=== PATIENT | female | born 1955 | race Caucasian/White ===

== ENCOUNTER 2018-04-21 08:22 | Day surgery (SDC) | payer MEDICARE, MEDICAID ==
[~2018-04-21 08:22] MED LIST: Bisacodyl 5 MG Tab PO PRN; Clindamycin Phosphate 900 MG in Sodium Chloride 0.9% 100 ML IV SCH; EPINEPHrine 1 MG/ML SDV ONE; Lidocaine 1%/Sod Bicarbonate in NS 8.4% 1 ML Syringe IDERM PRN; Magnesium Hydroxide 400 MG/5 ML Susp 30 ML Cup PO PRN; Morphine 2 MG/ML Syringe IVPUSH PRN; Naloxone 0.4 MG/ML SDV IVPUSH PRN; Ondansetron 4 MG/2 ML SDV IVPUSH PRN; Ropivacaine 0.5% 5 MG/ML 30 ML SDV ONE; Sennosides 8.6 MG Tab PO PRN; Sodium Chloride 0.9% 10 ML Syringe FLUSH PRN
[2018-04-21] MEDS: Lactated Ringers 1,000 ML IV SCH ×2 (08:46→12:56)
[2018-04-21] MEDS ORDERED: Albuterol 0.083% 2.5 MG/3 ML Neb Soln NEB ONE (08:52)
[2018-04-21] MEDS ORDERED: Morphine 8 MG, EPINEPHrine 0.3 MG, Ketorolac 30 MG, Sodium Chloride 0.9% 27.9 ML ONE ×4 (09:00)
--- NOTE | 2018-04-21 09:06 | PCM.PREANE ---
Preanesthetic Assessment - Procedure Proposed Procedure: right total knee - Anesthesia/Transfusion/Family Hx Anesthesia History: Prior Anesthesia Without Reaction Family History of Anesthesia Reaction: No Transfusion History: Prior Transfusion Without Reaction - Review of Systems General: No Symptoms Pulmonary: No Symptoms Cardiovascular: No Symptoms Gastrointestinal: No Symptoms Neurological: No Symptoms Other: Reports: Depression, Anxiety - Physical Assessment NPO Status Date: 04/20/18 NPO Status Time: 19:00 (sip with pill at 4) Pulse: 60 O2 Sat by Pulse Oximetry: 94 Respiratory Rate: 18 Blood Pressure: 131/67 Temperature: 100.3 F Height: 5 ft 7 in Weight: 76.4 kg ASA Class: 3 Mental Status: Alert & Oriented x3 Airway Class: Mallampati = 1 Dentition: Reports: Dentures (top and bottom- chips and missing teeth in dentures) Thyro-Mental Finger Breadths: 3 Mouth Opening Finger Breadths: 3 ROM/Head Extension: Full Lungs: Normal Respiratory Effort, Decreased Breath Sounds Cardiovascular: Regular Rate, Regular Rhythm - Allergies Allergies/Adverse Reactions: Allergies Allergy/AdvReac Type Severity Reaction Status Date / Time Cephalosporins Allergy Rash Verified 04/20/18 13:48 amoxicillin [From Augmentin] AdvReac Diarrhea Verified 04/20/18 13:55 clavulanic acid AdvReac Diarrhea Verified 04/20/18 13:55 [From Augmentin] - Blood Blood Available: No - Anesthesia Plan Beta Stef: Other (nebivolol) Med Last Dose Date: 04/21/18 Med Last Dose Time: 04:00 - Acknowledgements Anesthesia Type Planned: Spinal Pt an Appropriate Candidate for the Planned Anesthesia: Yes Alternatives and Risks of Anesthesia Discussed w Pt/Guardian: Yes Pt/Guardian Understands and Agrees with Anesthesia Plan: Yes PreAnesthesia Questionnaire HEENT History: Reports: Allergic Rhinitis, Impaired Vision, Other (See Below) Other HEENT History: wears glasses, has dentures Cardiovascular History: Reports: High Cholesterol, Hypertension Respiratory History: Reports: None Gastrointestinal History: Reports: GERD, Other (See Below) Other Gastrointestinal History: nausea Genitourinary History: Reports: Chronic Renal Insuffiency (only has 1 kidney) PICKLE SORTER History: Reports: None Musculoskeletal History: Reports: Back Pain, Chronic, Osteoarthritis, Other ( See Below) Other Musculoskeletal History: right knee pain, lumbar radiculopathy Neurological History: Reports: Other (See Below) Other Neuro History: lumbar discectomy, lumbar fusion Psychiatric History: Reports: Addiction, Anxiety, Depression Endocrine/Metabolic History: Reports: None Hematologic History: Reports: None Immunologic History: Reports: None Oncologic (Cancer) History: Reports: None Dermatologic History: Reports: None - Past Surgical History HEENT Surgical History: Reports: Adenoidectomy, Tonsillectomy Cardiovascular Surgical History: Reports: None Respiratory Surgical History: Reports: None GI Surgical History: Reports: Colonoscopy, EGD Female Surgical History: Reports: Hysterectomy, Tubal Ligation, Other (See Below) Other Female Surgeries/Procedures: nephrectomy Endocrine Surgical History: Reports: None Neurological Surgical History: Reports: Other (See Below) (back surgery) Musculoskeletal Surgical History: Reports: None Oncologic Surgical History: Reports: None Dermatological Surgical History: Reports: None - SUBSTANCE USE Smoking Status *Q: Current Every Day Smoker Tobacco Use Within Last Twelve Months: Cigarettes Second Hand Smoke Exposure: Yes Days Per Week of Alcohol Use: 0 Recreational Drug Use History: No - HOME MEDS Home Medications: Home Meds ARIPiprazole [Aripiprazole] 2 mg PO DAILY 04/20/18 [History] DULoxetine HCl [Duloxetine HCl] 60 mg PO DAILY 04/20/18 [History] Meloxicam 15 mg PO DAILY 04/20/18 [History] Multivitamin [Zoo Chews] 1 tab PO DAILY 04/20/18 [History] Naltrexone 50 mg PO DAILY 04/20/18 [History] Nebivolol HCl [Bystolic] 10 mg PO DAILY 04/20/18 [History] Omeprazole Magnesium [Prilosec Otc] 20 mg PO BID 04/20/18 [History] Sennosides [Senokot] 8.6 mg PO DAILY PRN 04/20/18 [History] Simvastatin [Zocor] 80 mg PO DAILY 04/20/18 [History] amLODIPine Besylate [Amlodipine Besylate] 10 mg PO DAILY 04/20/18 [History] amLODIPine Besylate [Amlodipine Besylate] 10 mg PO DAILY 04/20/18 [History] hydrOXYzine HCl [hydrOXYzine] 25 - 50 mg PO BID 04/20/18 [History] traZODone HCl [Trazodone HCl] 200 mg PO BEDTIME 04/20/18 [History] - CURRENT (IN HOUSE) MEDS Current Meds: Current Medications Albuterol (Proventil Neb Soln) 2.5 mg NEB ONETIME ONE Stop: 04/21/18 08:53 Aspirin (Ecotrin) 325 mg PO BID [facility] Bisacodyl (Dulcolax) 5 mg PO DAILY PRN PRN Reason: Constipation Cyclobenzaprine HCl (Flexeril) 10 mg PO TID PRN PRN Reason: Spasms Docusate Sodium (Colace) 100 mg PO BID [facility] Lactated Ringer's (Ringers, Lactated) 1,000 mls @ 125 mls/hr IV ASDIRECTED [facility] Stop: 04/21/18 23:00 Cefazolin Sodium/Dextrose 2 gm (/ Premix) 50 mls @ 100 mls/hr IV Q8H [facility] Stop: 04/22/18 00:29 Ketorolac Tromethamine (Toradol) 15 mg IVPUSH Q6H PRN PRN Reason: Pain Lidocaine/Sodium Bicarbonate (Buffered Lidocaine 1% In Ns 8.4%) 0.25 ml IDERM ONETIME PRN PRN Reason: Prior to IV Start Stop: 04/21/18 18:00 Magnesium Hydroxide (Milk Of Magnesia) 30 ml PO BID PRN PRN Reason: Constipation Morphine Sulfate (Morphine) 2 mg IVPUSH Q2H PRN PRN Reason: Breakthrough Pain Naloxone HCl (Narcan) 0.1 mg IVPUSH Q5M PRN PRN Reason: Oversedation Ondansetron HCl (Zofran) 4 mg IVPUSH Q6H PRN PRN Reason: Nausea/Vomiting Oxycodone/Acetaminophen (Percocet 325-5 Mg) 1 - 2 tab PO Q4H PRN PRN Reason: Pain Senna (Senna) 8.6 mg PO BID PRN PRN Reason: Constipation Sodium Chloride (Saline Flush) 10 ml FLUSH ASDIRECTED PRN PRN Reason: Keep Vein Open Stop: 04/21/18 18:00 Discontinued Medications Morphine Sulfate 8 mg/Epinephrine HCl 0.3 mg/Ketorolac Tromethamine 30 mg/ Sodium Chloride 27.9 ml 0 mg .XX ONETIME ONE Stop: 04/21/18 09:01 Epinephrine HCl (Adrenalin) Confirm Administered Dose 1 mg .ROUTE .[facility] ONE Stop: 04/21/18 07:26 Clindamycin Phosphate 900 mg/ (Sodium Chloride) 106 mls @ 100 mls/hr IV Q6H [facility] Stop: 04/22/18 07:46 Ropivacaine (Naropin 0.5%) Confirm Administered Dose 30 ml .ROUTE .[facility] ONE Stop: 04/21/18 07:26
[2018-04-21] MEDS ORDERED: Acetaminophen 325 MG Tab PO SCH (09:15)
[2018-04-21] MEDS ORDERED: oxyCODONE ER 10 MG TAB.ER PO SCH (09:15)
[2018-04-21] MEDS ORDERED: Pregabalin 25 MG Cap PO SCH (09:15)
[2018-04-21] MEDS ORDERED: ceFAZolin 1 GM Vial ONE ×2 (09:21→09:32)
[2018-04-21] MEDS ORDERED: Ondansetron 4 MG/2 ML SDV ONE (09:27)
[2018-04-21] MEDS ORDERED: fentaNYL 100 MCG/2 ML SDV ONE (09:27)
[2018-04-21] MEDS ORDERED: Midazolam 1 MG/ML 2 ML SDV ONE (09:27)
[2018-04-21] MEDS ORDERED: Propofol 200 MG/20 ML SDV ONE ×3 (09:27→11:07)
[2018-04-21] MEDS ORDERED: Lidocaine 1% 4 ML ONE (09:30)
[2018-04-21] MEDS ORDERED: Bupivacaine 0.75% 30 ML SDV ONE (09:35)
[2018-04-21] MEDS ORDERED: Lactated Ringers 1,000 ML ONE (10:26)
[2018-04-21] MEDS ORDERED: Pantoprazole 40 MG Tab.CR PO PRN (10:29)
[2018-04-21] MEDS ORDERED: Sennosides 8.6 MG Tab PO PRN (10:29)
[2018-04-21] MEDS ORDERED: Ketorolac 30 MG/ML SDV ONE (10:38)
[2018-04-21] MEDS ORDERED: Ketamine 500 mg/10 ML MDV ONE (10:38)
[2018-04-21] MEDS: Bupivacaine 0.25% 10 ML SDV ONE ×2 (10:52→11:33)
[2018-04-21] MEDS: Triamcinolone Acetonide 40 MG/ML 1 ML MDV ONE ×2 (10:56→11:33)
[2018-04-21] MEDS: Iodine/Sodium Iodide 2% Tincture 30 ML Bottle ONE ×2 (10:58→11:04)
[2018-04-21] MEDS: Bupivacaine 0.25% 30 ML SDV ONE ×2 (10:59→11:11)
[2018-04-21] MEDS: Vancomycin 1 GM SDV ONE ×2 (11:01→11:13)
[2018-04-21] MEDS: MORPHINE ONE ×15 (11:02→15:11)
[2018-04-21] MEDS: EPINEPHRINE ONE ×15 (11:02→15:11)
[2018-04-21] MEDS: KETOROLAC ONE ×15 (11:02→15:11)
[2018-04-21] MEDS: [UNRECOGNIZED DRUG - OTHER] ONE ×15 (11:02→15:11)
[2018-04-21] MEDS: SODIUM CHLORIDE 0.9% ONE ×15 (11:02→15:11)
[2018-04-21] MEDS ORDERED: fentaNYL 100 MCG/2 ML SDV IVPUSH PRN (11:54)
--- NOTE | 2018-04-21 11:57 | PCM.POSTAN ---
POST ANESTHESIA ASSESSMENT - MENTAL STATUS Mental Status: Alert, Oriented - VITAL SIGNS Pulse Rate: 58 SaO2: 90 Resp Rate: 15 Blood Pressure: 102/91 Temperature: 36.7 C - RESPIRATORY Respiratory Status: Respiratory Rate WNL, Airway Patent, O2 Saturation Stable - CARDIOVASCULAR CV Status: Pulse Rate WNL, Blood Pressure Stable - GASTROINTESTINAL GI Status: No Symptoms - PAIN Pain Score: 0 - POST OP HYDRATION Hydration Status: Adequate & Stable - OBSERVATIONS Free Text/Narrative:: no anesthesia complications noted
--- NOTE | 2018-04-21 12:47 | PCM.SN ---
- Free Text/Narrative Note: right selective femoral nerve block at the adductor canal for post-procedure pain control Time Out: 1215 Start: 1215 End: 1225 Chart reviewed. Consent signed. Questions answered. Appropriate monitors applied. Time out performed. Right mid-shaft femur evaluated with ultrasound. Scanning medially femur, I was able to identify the femoral artery in the adductor canal. The saphenous nerve was lateral to the artery. The skin was prepped lateral to the ultrasound probe with chlorahexadine. The 21ga 4 insulated block needle was inserted under direct ultrasound guidance into the adductor canal. 20mL of 0.5% ropivacaine with 1:200,000 epinephrine was injected cirmcumferentially about the nerve with intermittent negative aspiration every 5mL. Patient tolerated the procedure well. See pictures on progress note and vital signs on nurses notes. Block completed postoperatively. Shivam Arriaza CRNA
--- NOTE | 2018-04-21 13:44 | CR ---
Right knee: AP and lateral views of the right knee were obtained. Comparison: No prior right knee exam. Knee prosthesis is seen which is been recently placed. Components are aligned. Soft tissue air is noted. Underlying bony structures are intact. Impression: 1. Satisfactory postoperative radiographic appearance of recently placed right knee prosthesis. Diagnostic code #2
[2018-04-21] MEDS: Acetaminophen/oxyCODONE 325-5 MG Tab PO PRN ×2 (15:07→20:17)
[2018-04-21] MEDS: Ketorolac 15 MG/ML SDV IVPUSH PRN ×2 (15:08→21:50)
[2018-04-21] MEDS: ceFAZolin 2 GM in Premix Bag 1 BAG IV SCH (17:30)
[2018-04-21] MEDS: Nicotine 21 MG/24 Hr Patch TRDERM SCH (18:10)
[2018-04-21] MEDS: Docusate Sodium 100 MG Cap PO SCH (20:22)
[2018-04-21] MEDS ORDERED: traZODone 50 MG Tab PO SCH (21:00)
[2018-04-21] MEDS ORDERED: hydrOXYzine HCl 25 MG Tab PO PRN (21:00)
[2018-04-21] MEDS: Cyclobenzaprine 10 MG Tab PO PRN (21:50)
[2018-04-21] MEDS: Carvedilol 6.25 MG Tab PO SCH (22:07)
[2018-04-22] MEDS: Acetaminophen/oxyCODONE 325-5 MG Tab PO PRN ×4 (01:17→12:53)
[2018-04-22] MEDS: ceFAZolin 2 GM in Premix Bag 1 BAG IV SCH ×3 (01:17→11:25)
--- NOTE | 2018-04-22 07:01 | PCM.CONS ---
H&P History of Present Illness - General Date of Service: 04/22/18 Admit Problem/Dx: Admission Diagnosis/Problem Admission Diagnosis/Problem Osteoarthritis of knee Source of Information: Patient, Provider, RN, RN Notes Reviewed, Other ( surgical notes ) History Limitations: Reports: No Limitations - History of Present Illness Initial Comments - Free Text/Narative: Eloise Moss is a 63 yo female patient of Dr. Dorsey who is post-operative day 1 of right TKA with left knee cortisone injection. Hospital medicine was consulted for post-operative medical care. At this time she is resting comfortably in bed. Pain is controlled. She denies any chest pain, shortness of breath, palpitations, nausea, or vomiting. She carries a history of: HLD, HTN, GERD, CKD stage III, nephrectomy, chronic back pain, OA, Lumbar discectomy, lumbar fusion, anxiety, depression, addiction. She is a former smoker. She is a full code. Her primary care provider is Dr. Martinez. Right Knee Pain Score (Numeric/FACES): 6 - Related Data Allergies/Adverse Reactions: Allergies Allergy/AdvReac Type Severity Reaction Status Date / Time Cephalosporins Allergy Rash Verified 04/21/18 09:10 amoxicillin [From Augmentin] AdvReac Diarrhea Verified 04/21/18 09:10 clavulanic acid AdvReac Diarrhea Verified 04/21/18 09:10 [From Augmentin] Home Medications: Home Meds ARIPiprazole [Aripiprazole] 2 mg PO DAILY 04/20/18 [History] DULoxetine HCl [Duloxetine HCl] 60 mg PO DAILY 04/20/18 [History] Multivitamin [Zoo Chews] 1 tab PO DAILY 04/20/18 [History] Nebivolol HCl [Bystolic] 10 mg PO DAILY 04/20/18 [History] Omeprazole Magnesium [Prilosec Otc] 20 mg PO BID PRN 04/20/18 [History] Sennosides [Senokot] 8.6 mg PO DAILY PRN 04/20/18 [History] Simvastatin [Zocor] 80 mg PO DAILY 04/20/18 [History] amLODIPine Besylate [Amlodipine Besylate] 10 mg PO DAILY 04/20/18 [History] hydrOXYzine HCl [hydrOXYzine] 25 - 50 mg PO BID 04/20/18 [History] traZODone HCl [Trazodone HCl] 200 mg PO BEDTIME 04/20/18 [History] Acetaminophen/oxyCODONE [Percocet 325-5 MG] 1 - 2 tab PO Q6H PRN #60 tablet [Rx] Aspirin [Ecotrin] 325 mg PO BID #84 tab.ec 04/22/18 [Rx] Bisacodyl [Dulcolax] 5 mg PO DAILY PRN tablet 04/22/18 [Rx] Docusate Sodium [Colace] 100 mg PO BID cap 04/22/18 [Rx] Magnesium Hydroxide [Milk of Magnesia] 30 ml PO BID PRN cup 04/22/18 [Rx] Nicotine [Habitrol] 21 mg TRDERM DAILY patch 04/22/18 [Rx] Past Medical History HEENT History: Reports: Allergic Rhinitis, Impaired Vision, Other (See Below) Other HEENT History: wears glasses, has dentures Cardiovascular History: Reports: High Cholesterol, Hypertension Respiratory History: Reports: None Gastrointestinal History: Reports: GERD, Other (See Below) Other Gastrointestinal History: nausea Genitourinary History: Reports: Chronic Renal Insuffiency (only has 1 kidney) VENEER JOINTER History: Reports: None Musculoskeletal History: Reports: Back Pain, Chronic, Osteoarthritis, Other ( See Below) Other Musculoskeletal History: right knee pain, lumbar radiculopathy Neurological History: Reports: Other (See Below) Other Neuro History: lumbar discectomy, lumbar fusion Psychiatric History: Reports: Addiction, Anxiety, Depression Endocrine/Metabolic History: Reports: None Hematologic History: Reports: None Immunologic History: Reports: None Oncologic (Cancer) History: Reports: None Dermatologic History: Reports: None - Past Surgical History HEENT Surgical History: Reports: Adenoidectomy, Tonsillectomy Cardiovascular Surgical History: Reports: None Respiratory Surgical History: Reports: None GI Surgical History: Reports: Colonoscopy, EGD Female Surgical History: Reports: Hysterectomy, Tubal Ligation, Other (See Below) Other Female Surgeries/Procedures: nephrectomy Endocrine Surgical History: Reports: None Neurological Surgical History: Reports: Other (See Below) (back surgery) Musculoskeletal Surgical History: Reports: None Oncologic Surgical History: Reports: None Dermatological Surgical History: Reports: None Social & Family History - Tobacco Use Smoking Status *Q: Current Every Day Smoker Years of Tobacco use: 40 Packs/Tins Daily: 0.5 Second Hand Smoke Exposure: Yes - Caffeine Use Caffeine Use: Reports: None - Alcohol Use Days Per Week of Alcohol Use: 0 - Recreational Drug Use Recreational Drug Use: No Drug Use in Last 12 Months: No H&P Review of Systems - Review of Systems: Review Of Systems: See Below General: Reports: No Symptoms HEENT: Reports: No Symptoms Pulmonary: Reports: No Symptoms Cardiovascular: Reports: No Symptoms Gastrointestinal: Reports: No Symptoms Genitourinary: Reports: No Symptoms Musculoskeletal: Reports: Joint Pain (right knee ) Skin: Reports: No Symptoms Psychiatric: Reports: No Symptoms Neurological: Reports: No Symptoms Hematologic/Lymphatic: Reports: No Symptoms Immunologic: Reports: No Symptoms Exam - Exam Exam: See Below - Vital Signs Vital Signs: Last Vital Signs Temp 98.4 F 04/22/18 03:57 Pulse 64 04/22/18 03:57 Resp 16 04/22/18 03:57 BP 136/84 04/22/18 03:57 Pulse Ox 96 04/22/18 03:57 Weight: 168 lb 6.931 oz - Exam Quality Assessment: DVT Prophylaxis. No: Supplemental Oxygen, Urinary Catheter General: Alert, Oriented, Cooperative. No: Mild Distress HEENT: Conjunctiva Clear, EACs Clear, EOMI, Hearing Intact, Mucosa Moist & Orr , Nares Patent, Normal Nasal Septum, Posterior Pharynx Clear, PERRLA Neck: Supple, Trachea Midline Lungs: Clear to Auscultation, Normal Respiratory Effort Cardiovascular: Regular Rate, Regular Rhythm GI/Abdominal Exam: Normal Bowel Sounds, Soft, Non-Tender, No Distention, No Abnormal Bruit (Female) Exam: Deferred Rectal (Female) Exam: Deferred Back Exam: Normal Inspection, Full Range of Motion Extremities: No Pedal Edema, Normal Capillary Refill, Leg Pain, Limited Range of Motion, Other (Bandage in place on right leg. Bandage is dry and intact. Cooling pack in place ) Peripheral Pulses: 2+: Radial (L), Radial (R), Dorsalis Pedis (L), Dorsalis Pedis (R) Skin: Warm, Dry, Intact Neurological: Cranial Nerves Intact (grossly ) Neuro Extensive - Mental Status: Alert, Oriented x3, Normal Mood/Affect, Normal Cognition, Memory Intact - Patient Data Lab Results Last 24 hrs: Laboratory Results - last 24 hr 04/22/18 Range/Units 06:25 WBC 11.83 H (3.98-10.04) K/mm3 RBC 4.01 (3.98-5.22) M/mm3 Hgb 11.8 (11.2-15.7) gm/L Hct 35.5 (34.1-44.9) % MCV 88.5 (79.4-94.8) fl MCH 29.4 (25.6-32.2) pg MCHC 33.2 (32.2-35.5) g/dl RDW Std Deviation 40.9 (36.4-46.3) fL Plt Count 209 (182-369) K/mm3 MPV 10.9 (9.4-12.3) fl Result Diagrams: 04/22/18 06:25 04/22/18 06:25 Consult PN Assessment/Plan POD#: 1 (1) S/P total knee arthroplasty SNOMED Code(s): 1471779195939, 015655831, 2930910210759 Code(s): Z96.659 - PRESENCE OF UNSPECIFIED ARTIFICIAL KNEE JOINT Priority: High Current Visit: Yes Qualifiers: Laterality: right Qualified Code(s): Z96.651 - Presence of right artificial knee joint (2) Osteoarthritis SNOMED Code(s): 163925244 Code(s): M19.90 - UNSPECIFIED OSTEOARTHRITIS, UNSPECIFIED SITE Priority: High Current Visit: Yes Qualifiers: Osteoarthritis location: knee Osteoarthritis type: primary Laterality: bilateral Qualified Code(s): M17.0 - Bilateral primary osteoarthritis of knee (3) CKD (chronic kidney disease), stage III SNOMED Code(s): 331883854 Code(s): N18.3 - CHRONIC KIDNEY DISEASE, STAGE 3 (MODERATE) Priority: Medium Current Visit: No (4) GERD (gastroesophageal reflux disease) SNOMED Code(s): 392490486 Code(s): K21.9 - GASTRO-ESOPHAGEAL REFLUX DISEASE WITHOUT ESOPHAGITIS Priority: Medium Current Visit: No Qualifiers: Esophagitis presence: esophagitis presence not specified Qualified Code(s) : K21.9 - Gastro-esophageal reflux disease without esophagitis (5) HTN (hypertension) SNOMED Code(s): 04025802 Code(s): I10 - ESSENTIAL (PRIMARY) HYPERTENSION Priority: Medium Current Visit: No (6) HLD (hyperlipidemia) SNOMED Code(s): 95811737 Code(s): E78.5 - HYPERLIPIDEMIA, UNSPECIFIED Priority: Low Current Visit : No Qualifiers: Hyperlipidemia type: unspecified Qualified Code(s): E78.5 - Hyperlipidemia , unspecified (7) Chronic back pain SNOMED Code(s): 836724292 Code(s): M54.9 - DORSALGIA, UNSPECIFIED; G89.29 - OTHER CHRONIC PAIN Priority: Medium Current Visit: No Qualifiers: Back pain location: back pain in unspecified location Back pain laterality : unspecified Qualified Code(s): M54.9 - Dorsalgia, unspecified; G89.29 - Other chronic pain (8) History of nephrectomy SNOMED Code(s): 03976097187007 Code(s): Z90.5 - ACQUIRED ABSENCE OF KIDNEY Priority: Medium Current Visit: No Problem List Initiated/Reviewed/Updated: Yes Plan: I/P: Acute: S/P Right total knee arthroplasty - post-operative day 1 -DVT prophylaxis and pain management per primary care team -PT/OT -IS/RT -Monitor oxygen saturation -Titrate oxygen as needed -Vital signs stable -Monitor labs -Pre-operative Hgb was 13.9, Now 11.8 -Pre-operative GFR was 58, Now >60 Osteoarthritis of Bilateral knees -Pain management per primary care team S/P left knee cortisone injection -Management per primary team Chronic: HLD HTN GERD CKD stage III nephrectomy chronic back pain OA Lumbar discectomy lumbar fusion anxiety depression addiction Plan: CM for discharge planning GI prophylaxis Home medications as indicated Other orders as listed above Routine AM labs She is a full code. Her PCP is Dr. Martinez. In to see Eloise. She is doing very well from a hospitalist standpoint. She has been working with therapies. Vitals and labs look good. She has urinated. She has been weaned from oxygen. Pain is controlled. She is cleared from discharge pending primary team and PT/OT approval. Thank you for allowing us to participate in the care of this patient!! Requesting Provider: Dr. Dorsey Date Consult Requested: 04/21/18 Reason for Consult: Post-operative medical management Patient History Reviewed: Yes Admission H&P Reviewed: Yes Time Spent (in minutes): 40
--- NOTE | 2018-04-22 08:33 | PCM.SURGPN ---
- General Info Date of Service: 04/22/18 POD#: 1 Functional Status: Reports: Pain Controlled, Tolerating Diet, Ambulating, Urinating, Incentive Spirometry, Other (Nursing and therapy state the pt is doing very well.) - Patient Data Vitals - Most Recent: Last Vital Signs Temp 98.4 F 04/22/18 03:57 Pulse 64 04/22/18 03:57 Resp 16 04/22/18 03:57 BP 136/84 04/22/18 03:57 Pulse Ox 96 04/22/18 03:57 Weight - Most Recent: 168 lb 6.931 oz I&O - Last 24 Hours: Intake & Output 04/21/18 04/22/18 04/22/18 22:59 06:59 14:59 Intake Total 800 Output Total 350 Balance 450 Lab Results Last 24 Hrs: Laboratory Results - last 24 hr 04/22/18 04/22/18 Range/Units 06:25 06:25 WBC 11.83 H (3.98-10.04) K/mm3 RBC 4.01 (3.98-5.22) M/mm3 Hgb 11.8 (11.2-15.7) gm/L Hct 35.5 (34.1-44.9) % MCV 88.5 (79.4-94.8) fl MCH 29.4 (25.6-32.2) pg MCHC 33.2 (32.2-35.5) g/dl RDW Std Deviation 40.9 (36.4-46.3) fL Plt Count 209 (182-369) K/mm3 MPV 10.9 (9.4-12.3) fl Sodium 138 (136-145) mEq/L Potassium 4.1 (3.5-5.1) mEq/L Chloride 104 (98-107) mEq/L Carbon Dioxide 20 L (21-32) mEq/L Anion Gap 18.1 H (5-15) BUN 14 (7-18) mg/dL Creatinine 0.7 (0.55-1.02) mg/dL Est Cr Clr Drug Dosing 82.07 mL/min Estimated GFR (MDRD) > 60 (>60) mL/min BUN/Creatinine Ratio 20.0 H (14-18) Glucose 99 (80-115) mg/dL Calcium 8.7 (8.5-10.1) mg/dL Total Bilirubin 0.4 (0.2-1.0) mg/dL AST 16 (15-37) U/L ALT 19 (14-59) U/L Alkaline Phosphatase 73 (46-116) U/L Total Protein 6.3 L (6.4-8.2) g/dl Albumin 3.4 (3.4-5.0) g/dl Globulin 2.9 gm/dL Albumin/Globulin Ratio 1.2 (1-2) Med Orders - Current: Current Medications Amlodipine Besylate (Norvasc) 10 mg PO DAILY [facility] Aripiprazole (Abilify) 2 mg PO DAILY [facility] Aspirin (Ecotrin) 325 mg PO BID [facility] Bisacodyl (Dulcolax) 5 mg PO DAILY PRN PRN Reason: Constipation Carvedilol (Coreg) 6.25 mg PO BID [facility] Last Admin: 04/21/18 22:07 Dose: Not Given Cyclobenzaprine HCl (Flexeril) 10 mg PO TID PRN PRN Reason: Spasms Last Admin: 04/21/18 21:50 Dose: 10 mg Docusate Sodium (Colace) 100 mg PO BID [facility] Last Admin: 04/21/18 20:22 Dose: 100 mg Duloxetine HCl (Cymbalta) 60 mg PO DAILY [facility] Hydroxyzine HCl (Atarax) 25 - 50 mg PO BID PRN PRN Reason: anxiety Cefazolin Sodium/Dextrose 2 gm (/ Premix) 50 mls @ 100 mls/hr IV Q8H [facility] Stop: 04/22/18 10:29 Last Admin: 04/22/18 01:17 Dose: 100 mls/hr Magnesium Hydroxide (Milk Of Magnesia) 30 ml PO BID PRN PRN Reason: Constipation Miscellaneous Information (Remove Patch) 1 ea TRDERM DAILY [facility] Morphine Sulfate (Morphine) 2 mg IVPUSH Q2H PRN PRN Reason: Breakthrough Pain Multivitamins (Thera) 1 each PO DAILY [facility] Naloxone HCl (Narcan) 0.1 mg IVPUSH Q5M PRN PRN Reason: Oversedation Nicotine (Habitrol) 21 mg TRDERM DAILY [facility] Last Admin: 04/21/18 18:10 Dose: 21 mg Ondansetron HCl (Zofran) 4 mg IVPUSH Q6H PRN PRN Reason: Nausea/Vomiting Oxycodone/Acetaminophen (Percocet 325-5 Mg) 1 - 2 tab PO Q4H PRN PRN Reason: Pain Last Admin: 04/22/18 05:25 Dose: 2 tab Pantoprazole Sodium (Protonix) 40 mg PO BID PRN PRN Reason: acid reflux Simvastatin (Zocor) 80 mg PO DAILY [facility] Trazodone HCl (Trazodone) 200 mg PO BEDTIME [facility] Last Admin: 04/21/18 20:22 Dose: 200 mg Discontinued Medications Acetaminophen (Tylenol) 975 mg PO ONETIME [facility] Stop: 04/21/18 11:00 Last Admin: 04/21/18 09:20 Dose: 975 mg Albuterol (Proventil Neb Soln) 2.5 mg NEB ONETIME ONE Stop: 04/21/18 08:53 Last Admin: 04/21/18 09:17 Dose: 2.5 mg Bupivacaine HCl (Sensorcaine-Mpf 0.25%) Confirm Administered Dose 10 ml .ROUTE .STK-MED ONE Stop: 04/21/18 09:22 Last Admin: 04/21/18 11:33 Dose: 4 ml Bupivacaine HCl (Marcaine 0.25%) Confirm Administered Dose 30 ml .ROUTE .STK- MED ONE Stop: 04/21/18 09:22 Last Admin: 04/21/18 11:11 Dose: 30 ml Bupivacaine HCl (Sensorcaine-Mpf 0.75%) Confirm Administered Dose 30 ml .ROUTE .STK-MED ONE Stop: 04/21/18 09:36 Cefazolin Sodium (Ancef) Confirm Administered Dose 2 gm .ROUTE .STK-MED ONE Stop: 04/21/18 09:22 Last Admin: 04/21/18 10:55 Dose: 2 gm Cefazolin Sodium (Ancef) Confirm Administered Dose 2 gm .ROUTE .STK-MED ONE Stop: 04/21/18 09:33 Morphine Sulfate 8 mg/Epinephrine HCl 0.3 mg/Ketorolac Tromethamine 30 mg/ Sodium Chloride 27.9 ml 0 mg .XX ONETIME ONE Stop: 04/21/18 09:01 Last Admin: 04/21/18 16:36 Dose: Not Given Morphine Sulfate 8 mg/Epinephrine HCl 0.3 mg/Ketorolac Tromethamine 30 mg/ Sodium Chloride 27.9 ml/Cefuroxime Sodium 750 mg 0 mg .XX ONETIME ONE Stop: 04/21/18 11:01 Last Admin: 04/21/18 15:11 Dose: Not Given Epinephrine HCl (Adrenalin) Confirm Administered Dose 1 mg .ROUTE .STK-MED ONE Stop: 04/21/18 07:26 Fentanyl (Sublimaze) Confirm Administered Dose 100 mcg .ROUTE .STK-MED ONE Stop: 04/21/18 09:28 Fentanyl (Sublimaze) 50 mcg IVPUSH Q5M PRN PRN Reason: Pain Stop: 04/21/18 13:00 Lactated Ringer's (Ringers, Lactated) 1,000 mls @ 125 mls/hr IV ASDIRECTED [facility] Stop: 04/21/18 23:00 Last Admin: 04/21/18 12:56 Dose: 125 mls/hr Clindamycin Phosphate 900 mg/ (Sodium Chloride) 106 mls @ 100 mls/hr IV Q6H [facility] Stop: 04/22/18 07:46 Last Admin: 04/21/18 16:36 Dose: Not Given Lidocaine HCl (Xylocaine-Mpf 1%) Confirm Administered Dose 4 mls @ as directed .ROUTE .STK-MED ONE Stop: 04/21/18 09:31 Lactated Ringer's (Ringers, Lactated) Confirm Administered Dose 1,000 mls @ as directed .ROUTE .STK-MED ONE Stop: 04/21/18 10:27 Iodine (Iodine 2% Mild Tincture) Confirm Administered Dose 30 ml .ROUTE .STK- MED ONE Stop: 04/21/18 09:22 Last Admin: 04/21/18 11:04 Dose: 18 ml Ketamine HCl (Ketalar) Confirm Administered Dose 500 mg .ROUTE .STK-MED ONE Stop: 04/21/18 10:39 Ketorolac Tromethamine (Toradol) 15 mg IVPUSH Q6H PRN PRN Reason: Pain Last Admin: 04/21/18 21:50 Dose: 15 mg Ketorolac Tromethamine (Toradol) Confirm Administered Dose 30 mg .ROUTE .STK- MED ONE Stop: 04/21/18 10:39 Lidocaine/Sodium Bicarbonate (Buffered Lidocaine 1% In Ns 8.4%) 0.25 ml IDERM ONETIME PRN PRN Reason: Prior to IV Start Stop: 04/21/18 18:00 Midazolam HCl (Versed 1 Mg/Ml) Confirm Administered Dose 2 mg .ROUTE .STK-MED ONE Stop: 04/21/18 09:28 Ondansetron HCl (Zofran) Confirm Administered Dose 4 mg .ROUTE .STK-MED ONE Stop: 04/21/18 09:28 Oxycodone HCl (Oxycontin) 10 mg PO ONETIME [facility] Stop: 04/21/18 11:00 Last Admin: 04/21/18 09:20 Dose: 10 mg Pregabalin (Lyrica) 50 mg PO ONETIME [facility] Last Admin: 04/21/18 09:20 Dose: 50 mg Propofol (Diprivan 20 Ml) Confirm Administered Dose 200 mg .ROUTE .STK-MED ONE Stop: 04/21/18 09:28 Propofol (Diprivan 20 Ml) Confirm Administered Dose 200 mg .ROUTE .STK-MED ONE Stop: 04/21/18 10:34 Propofol (Diprivan 20 Ml) Confirm Administered Dose 200 mg .ROUTE .STK-MED ONE Stop: 04/21/18 11:08 Ropivacaine (Naropin 0.5%) Confirm Administered Dose 30 ml .ROUTE .STK-MED ONE Stop: 04/21/18 07:26 Senna (Senna) 8.6 mg PO BID PRN PRN Reason: Constipation Senna (Senna) 8.6 mg PO DAILY PRN PRN Reason: Constipation Sodium Chloride (Saline Flush) 10 ml FLUSH ASDIRECTED PRN PRN Reason: Keep Vein Open Stop: 04/21/18 18:00 Tranexamic Acid (Cyklokapron) Confirm Administered Dose 1,000 mg .ROUTE .STK- MED ONE Stop: 04/21/18 09:21 Last Admin: 04/21/18 11:17 Dose: 1,000 mg Triamcinolone Acetonide (Kenalog-40) Confirm Administered Dose 80 mg .ROUTE .STK -MED ONE Stop: 04/21/18 09:22 Last Admin: 04/21/18 11:33 Dose: 80 mg Vancomycin HCl (Vancomycin) Confirm Administered Dose 1 gm .ROUTE .STK-MED ONE Stop: 04/21/18 09:22 Last Admin: 04/21/18 11:13 Dose: 1 gm - Exam Wound/Incisions: Dressing Dry and Intact General: Alert, Cooperative, No Acute Distress Lungs: Normal Respiratory Effort Extremities: Other (NVS intact for BLE. Zbigniew's negative for RLE.) - Problem List Review Problem List Initiated/Reviewed/Updated: Yes - My Orders Last 24 Hours: Active Orders 24 hr Category Date Time Status Patient Status [ADT] Routine ADT 04/21/18 07:37 Active Ambulate [RC] 09,13,17 Care 04/21/18 07:37 Active May Shower [RC] ASDIRECTED Care 04/21/18 07:37 Active Notify Provider Consults [RC] ASDIRECTED Care 04/21/18 07:41 Active Notify Provider [RC] ASDIRECTED Care 04/21/18 11:54 Active Oxygen Therapy [RC] ASDIRECTED Care 04/21/18 11:54 Active Pulse Oximetry [RC] ASDIRECTED Care 04/21/18 11:54 Active RT Aerosol Therapy [RC] ASDIRECTED Care 04/21/18 08:53 Active Ready for Discharge [RC] PER UNIT ROUTINE Care 04/22/18 07:54 Active Up to Chair [RC] BID Care 04/21/18 07:37 Active Vital Signs [RC] Q4HR Care 04/21/18 07:37 Active Consult to Physician [CONS] Routine Cons 04/21/18 07:37 Active OT Evaluation and Treatment [CONS] Routine Cons 04/21/18 07:36 Active PT Evaluation and Treatment [CONS] Routine Cons 04/21/18 07:36 Active Regular Diet [DIET] Diet 04/21/18 Lunch Active ARIPiprazole [Abilify] Med 04/22/18 09:00 Active 2 mg PO DAILY Acetaminophen/oxyCODONE [Percocet 325-5 MG] Med 04/21/18 07:36 Active 1 - 2 tab PO Q4H PRN Aspirin [Ecotrin] Med 04/22/18 09:00 Active 325 mg PO BID Bisacodyl [Dulcolax] Med 04/21/18 07:37 Active 5 mg PO DAILY PRN Carvedilol [Coreg] Med 04/21/18 21:00 Active 6.25 mg PO BID Cyclobenzaprine [Flexeril] Med 04/21/18 07:36 Active 10 mg PO TID PRN DULoxetine [Cymbalta] Med 04/22/18 09:00 Active 60 mg PO DAILY Docusate Sodium [Colace] Med 04/21/18 21:00 Active 100 mg PO BID Magnesium Hydroxide [Milk of Magnesia] Med 04/21/18 07:37 Active 30 ml PO BID PRN Morphine Med 04/21/18 07:37 Active 2 mg IVPUSH Q2H PRN Multivitamins,Therapeutic [Thera] Med 04/22/18 09:00 Active 1 each PO DAILY Naloxone [Narcan] Med 04/21/18 07:37 Active 0.1 mg IVPUSH Q5M PRN Nicotine [Habitrol] Med 04/21/18 18:00 Active 21 mg TRDERM DAILY Ondansetron [Zofran] Med 04/21/18 07:37 Active 4 mg IVPUSH Q6H PRN Pantoprazole [ProTONIX] Med 04/21/18 10:29 Active 40 mg PO BID PRN Remove Patch Med 04/22/18 09:00 Active 1 ea TRDERM DAILY Simvastatin [Zocor] Med 04/22/18 09:00 Active 80 mg PO DAILY amLODIPine [Norvasc] Med 04/22/18 09:00 Active 10 mg PO DAILY ceFAZolin [Ancef] 2 gm Med 04/21/18 18:00 Active Premix Bag 1 bag IV Q8H hydrOXYzine HCl [Atarax] Med 04/21/18 21:00 Active 25 - 50 mg PO BID PRN traZODone Med 04/21/18 21:00 Active 200 mg PO BEDTIME Antiembolic Hose [OM.PC] Per Unit Routine Oth 04/21/18 07:40 Ordered Ice Therapy [OM.PC] Per Unit Routine Oth 04/21/18 07:39 Ordered Sequential Compression Device [OM.PC] Per Unit Routine Oth 04/21/18 07:36 Ordered Resuscitation Status Routine Resus Stat 04/21/18 07:37 Ordered Medication Orders Amlodipine Besylate (Norvasc) 10 mg PO DAILY [facility] Aripiprazole (Abilify) 2 mg PO DAILY [facility] Aspirin (Ecotrin) 325 mg PO BID [facility] Bisacodyl (Dulcolax) 5 mg PO DAILY PRN PRN Reason: Constipation Carvedilol (Coreg) 6.25 mg PO BID [facility] Last Admin: 04/21/18 22:07 Dose: Not Given Cyclobenzaprine HCl (Flexeril) 10 mg PO TID PRN PRN Reason: Spasms Last Admin: 04/21/18 21:50 Dose: 10 mg Docusate Sodium (Colace) 100 mg PO BID [facility] Last Admin: 04/21/18 20:22 Dose: 100 mg Duloxetine HCl (Cymbalta) 60 mg PO DAILY [facility] Hydroxyzine HCl (Atarax) 25 - 50 mg PO BID PRN PRN Reason: anxiety Cefazolin Sodium/Dextrose 2 gm (/ Premix) 50 mls @ 100 mls/hr IV Q8H [facility] Stop: 04/22/18 10:29 Last Admin: 04/22/18 01:17 Dose: 100 mls/hr Infusion: 04/21/18 18:00 Dose: 100 mls/hr Admin: 04/21/18 17:30 Dose: 100 mls/hr Magnesium Hydroxide (Milk Of Magnesia) 30 ml PO BID PRN PRN Reason: Constipation Miscellaneous Information (Remove Patch) 1 ea TRDERM DAILY [facility] Morphine Sulfate (Morphine) 2 mg IVPUSH Q2H PRN PRN Reason: Breakthrough Pain Multivitamins (Thera) 1 each PO DAILY [facility] Naloxone HCl (Narcan) 0.1 mg IVPUSH Q5M PRN PRN Reason: Oversedation Nicotine (Habitrol) 21 mg TRDERM DAILY [facility] Last Admin: 04/21/18 18:10 Dose: 21 mg Ondansetron HCl (Zofran) 4 mg IVPUSH Q6H PRN PRN Reason: Nausea/Vomiting Oxycodone/Acetaminophen (Percocet 325-5 Mg) 1 - 2 tab PO Q4H PRN PRN Reason: Pain Last Admin: 04/22/18 05:25 Dose: 2 tab Admin: 04/22/18 01:17 Dose: 2 tab Admin: 04/21/18 20:17 Dose: 2 tab Admin: 04/21/18 15:07 Dose: 2 tab Pantoprazole Sodium (Protonix) 40 mg PO BID PRN PRN Reason: acid reflux Simvastatin (Zocor) 80 mg PO DAILY [facility] Trazodone HCl (Trazodone) 200 mg PO BEDTIME [facility] Last Admin: 04/21/18 20:22 Dose: 200 mg - Assessment Assessment (Free Text/Narrative):: POD#1 - right TKA - Plan Plan (Free Text/Narrative):: 1. Hgb 11.8. 2. ASA 325mg PO BID, frequent mobilty, TEDs. 3. Outpatient therapy. 4. Discharge to home today. The pt will have the assistance of her family members. The pt's case was discussed with Dr. Dorsey.
[2018-04-22] MEDS: Cyclobenzaprine 10 MG Tab PO PRN (08:52)
[2018-04-22] MEDS ORDERED: Multivitamins,Therapeutic Tab PO SCH (09:00)
[2018-04-22] MEDS ORDERED: DULoxetine 30 MG Cap PO SCH (09:00)
[2018-04-22] MEDS ORDERED: amLODIPine 10 MG Tab PO SCH (09:00)
[2018-04-22] MEDS ORDERED: Simvastatin 40 MG Tab PO SCH (09:00)
[2018-04-22] MEDS ORDERED: Aspirin 325 MG Tab.EC PO SCH (09:00)
[2018-04-22] MEDS: Docusate Sodium 100 MG Cap PO SCH (09:38)
[2018-04-22] MEDS: Carvedilol 6.25 MG Tab PO SCH (09:42)
[2018-04-22] MEDS: Nicotine 21 MG/24 Hr Patch TRDERM SCH (09:43)
[2018-04-22] MEDS ORDERED: oxyCODONE 5 MG Tab PO ONE (13:23)
[2018-04-22] MEDS ORDERED: Celecoxib 100 MG Cap PO ONE (13:23)
--- NOTE | 2018-04-28 11:16 | PCM.OPNOTE ---
- General Post-Op/Procedure Note Date of Surgery/Procedure: 04/21/18 Operative Procedure(s): right total knee arthroplasty with left knee corticosteroid injection Pre Op Diagnosis: bilateral knee osteoarthrosis Post-Op Diagnosis: Same Anesthesia Technique: Local, MAC, Spinal Primary Surgeon: Irwin Dorsey Anesthesia Provider: Shivam Arriaza Mechanism Inspector: Jonelle Mahoney Mechanism Inspector: María Vazquez EBAaron in mLs: 5 Complications: None Condition: Good Free Text/Narrative:: 12/01 29x9
--- NOTE | 2018-05-04 22:32 | OR ---
DATE OF OPERATION: 04/21/2018 SURGEON: Irwin Dorsey MD OPERATION PERFORMED: Right total knee arthroplasty with left knee corticosteroid injection. PREOPERATIVE DIAGNOSIS: Bilateral knee osteoarthrosis. POSTOPERATIVE DIAGNOSIS: Bilateral knee osteoarthrosis. ANESTHESIA: Local MAC with spinal. ANESTHESIA PROVIDER: Shivam Arriaza CRNA. ASSISTANTS: Jonelle Mahoney PA-C and María Vazquez LPN. ESTIMATED BLOOD LOSS: 5 mL. COMPLICATIONS: None. CONDITION: Stable. IMPLANTS: 1. [place] size 4 cemented PS femur. 2. Yvonne size 4 cemented universal tibial base plate. 3. [place] size 4 cemented 29 x 9 mm asymmetric patella. 4. Yvonne size 4 9-mm PS X3 polyethylene. DESCRIPTION OF PROCEDURE: The patient was identified in the preop holding area. Proper site was marked and identified by the surgeon. The patient was taken back to the operating theater. After adequate anesthesia, the patient's right lower extremity had a nonsterile tourniquet applied and it was then sterilely prepped and draped in the usual sterile fashion. OR timeout was performed. The patient received 2 g IV Ancef. At this time, right lower extremity was exsanguinated. Tourniquet was insufflated to 300 mmHg. Standard medial parapatellar incision was made. Medial parapatellar arthrotomy was created. Deep fibers of the MCL were raised and anterior fat pad was resected. At this time, attention was turned to the patella. Patella measured 21, it was resected to a 13 for 29 x 9 mm patella. Drill holes were then drilled and found to be in adequate position. The drill was then drilled in the distal femur and the intramedullary distal femoral cutting guide was then placed. 8 mm was resected off the distal femur and was found to be an adequate resection. Sizing guide was placed. It was found to be a [place] size 4 cemented PS femur that was shown on the implant record at the beginning of this dictation. The drill holes were drilled for the epicondylar axis using Whitesides line and epicondyles as reference. At this time, the 4-in - 1 cutting block was placed. An anterior posterior and anterior and posterior chamfer cuts were then completed. The correct size box cut was then placed and the box cut was completed and found to be an adequate resection. Attention was turned to the tibia. The posterior medial lateral retractors were placed. The extramedullary tibial guide was placed. It was placed in the old footprint of the ACL. It was aligned with the center of the ankle and 0 degrees of slope, 8 mm was then resected off the unaffected lateral side. There was found to be an acceptable reduction. At this time, posterior osteophytes were removed along with medial and lateral meniscus. A trial implant was placed with a correct sized tibia that was mentioned at the beginning of the dictation. A size 4 9-mm PS X 3 polyethylene was then placed. The patient's knee was brought through range of motion. The patella was tracking centrally and was stable to varus and valgus stress. Alignment was found to be roughly at 0 degrees. At this time, cement was mixed on the back table. The tibia was stamped and drilled in proper rotation. All cut surfaces were irrigated with pulse lavage irrigation with Ancef and then completely dried. Once this was completed, then the cement was ready. The universal tibial base plate was cemented in place. Next, the Yvonne size 4 PS femur was cemented into place and the size 4 9-mm PS X3 polyethylene was placed. The patient's knee was brought into full extension. Excess cement was removed. The patella was then cemented in place at this time. Tourniquet was deflated. One liter dilute Betadine solution was irrigated through the knee along with 3 L of pulse lavage irrigation with Ancef. Periarticular injection was then completed. The patient's knee was brought through a range of motion. Once the cement had time to set up and it was found to be stable to varus valgus stress, the patella was tracking centrally with full range of motion. At this time, a #2 barbed suture was used for closure of the medial parapatellar arthrotomy. Topical tranexamic acid was placed. 2-0 Vicryl was used subcutaneously, a running 3-0 Monocryl was used subcuticularly. After this under sterile technique the left knee was injected with 2ml 40mg of kenalog and 4ml 0.25% Marcaine. The patient tolerated the procedures well and was sent to the PACU in stable condition. MMODAL /[id number] [facility]
== END 2018-04-22 13:19 | disposition home or self-care (01) ==
LOC: JD.SDS 08:22 → JD.MS 08:25 → JD.SDS 04-22 13:19
PROVIDERS: ATTEND Orthopaedic Surgery
DX: M17.0 Bilateral primary osteoarthritis of knee (principal); M25.761 Osteophyte, right knee; I12.9 Hypertensive chronic kidney disease with stage 1 through stage 4 chronic kidney disease, or unspecified chronic kidney disease; N18.3 Chronic kidney disease, stage 3 (moderate); F17.210 Nicotine dependence, cigarettes, uncomplicated; E78.5 Hyperlipidemia, unspecified; F41.9 Anxiety disorder, unspecified; F32.9 Major depressive disorder, single episode, unspecified; G89.29 Other chronic pain; M54.9 Dorsalgia, unspecified; K21.9 Gastro-esophageal reflux disease without esophagitis; Z79.899 Other long term (current) drug therapy; Z88.0 Allergy status to penicillin; Z88.1 Allergy status to other antibiotic agents; Z90.5 Acquired absence of kidney
CPT/HCPCS: 20610; 27447; 36415; 64447; 73560; 80053; 85027; 94640; 97110; 97116; 97161; 97165; 97535; A9270; C1713; C1776; J0171; J0690; J0697; J1885; J2250; J2270; J2405; J2704; J2795; J3010; J3301; J3370; J3490; J7120; 01400; 64450; J2001

== ENCOUNTER 2023-02-22 08:18 | Day surgery (SDC) | payer MEDICARE, OTHER ==
[~2023-02-22 08:18] MED LIST changes: +Acetaminophen 325 MG Tab PO SCH; -Bisacodyl 5 MG Tab PO PRN; -Clindamycin Phosphate 900 MG in Sodium Chloride 0.9% 100 ML IV SCH; -EPINEPHrine 1 MG/ML SDV ONE; +Lactated Ringers 1,000 ML IV SCH; -Lidocaine 1%/Sod Bicarbonate in NS 8.4% 1 ML Syringe IDERM PRN; -Magnesium Hydroxide 400 MG/5 ML Susp 30 ML Cup PO PRN; -Morphine 2 MG/ML Syringe IVPUSH PRN; +Morphine 8 MG, EPINEPHrine 0.3 MG, Ketorolac 30 MG, Sodium Chloride 0.9% 7.9 ML PRN; -Naloxone 0.4 MG/ML SDV IVPUSH PRN; -Ondansetron 4 MG/2 ML SDV IVPUSH PRN; +Pregabalin 25 MG Cap PO SCH; -Ropivacaine 0.5% 5 MG/ML 30 ML SDV ONE; -Sennosides 8.6 MG Tab PO PRN; +Sodium Chloride 0.9% 10 ML Syringe FLUSH SCH; +oxyCODONE ER 10 MG TAB.ER PO SCH
[2023-02-22] MEDS ORDERED: EPINEPHrine 1 MG/ML SDV ONE (09:04)
[2023-02-22] MEDS ORDERED: Ropivacaine 0.5% 5 MG/ML 30 ML SDV ONE (09:05)
[2023-02-22] MEDS ORDERED: Dexmedetomidine 200 MCG/2 ML SDV ONE (09:05)
[2023-02-22] MEDS ORDERED: Midazolam 1 MG/ML 2 ML SDV ONE (09:06)
[2023-02-22] MEDS ORDERED: Propofol 200 MG/20 ML SDV ONE ×3 (09:06→11:09)
[2023-02-22] MEDS ORDERED: ceFAZolin 2 GM Vial ONE (09:06)
[2023-02-22] MEDS ORDERED: Lactated Ringers 1,000 ML ONE (09:06)
[2023-02-22] MEDS ORDERED: fentaNYL 100 MCG/2 ML SDV ONE (09:06)
[2023-02-22] MEDS ORDERED: Lidocaine 1% 4 ML ONE (09:57)
[2023-02-22] MEDS ORDERED: ePHEDrine 50 MG/ML SDV ONE ×2 (10:00→10:26)
[2023-02-22] MEDS ORDERED: fentaNYL 100 MCG/2 ML SDV IVPUSH PRN (10:53)
[2023-02-22] MEDS ORDERED: Ondansetron 4 MG/2 ML SDV IVPUSH PRN (10:53)
[2023-02-22] MEDS ORDERED: HYDROmorphone 0.5 MG/0.5 ML Syringe IVPUSH PRN (10:53)
[2023-02-22] MEDS ORDERED: Vancomycin 1 GM SDV ONE (11:03)
[2023-02-22] MEDS ORDERED: Tranexamic Acid 1,000 MG/10 ML Vial ONE (11:03)
[2023-02-22] MEDS ORDERED: oxyCODONE 5 MG Tab PO SCH (12:55)
== END 2023-02-22 13:40 | disposition home or self-care (01) ==
LOC: JD.SDS 08:18
PROVIDERS: ATTEND Orthopaedic Surgery
DX: M17.12 Unilateral primary osteoarthritis, left knee (principal); G89.29 Other chronic pain; I12.9 Hypertensive chronic kidney disease with stage 1 through stage 4 chronic kidney disease, or unspecified chronic kidney disease; N18.30 Chronic kidney disease, stage 3 unspecified; F41.1 Generalized anxiety disorder; F41.0 Panic disorder [episodic paroxysmal anxiety]; K59.09 Other constipation; M54.9 Dorsalgia, unspecified; K21.9 Gastro-esophageal reflux disease without esophagitis; F32.A Depression, unspecified; F19.90 Other psychoactive substance use, unspecified, uncomplicated; E78.5 Hyperlipidemia, unspecified; Z88.0 Allergy status to penicillin; Z88.1 Allergy status to other antibiotic agents; Z79.899 Other long term (current) drug therapy; Z96.651 Presence of right artificial knee joint; Z98.51 Tubal ligation status; Z90.710 Acquired absence of both cervix and uterus; Z98.890 Other specified postprocedural states; Z90.5 Acquired absence of kidney; Z87.891 Personal history of nicotine dependence; E78.00 Pure hypercholesterolemia, unspecified; Z79.82 Long term (current) use of aspirin
CPT/HCPCS: 0055T; 27447; 64447; 73560; 97161; A9270; C1713; C1776; J0171; J0690; J1885; J2250; J2270; J2704; J2795; J3010; J3370; J7120; 01402; 01480; J3490